=== PATIENT | male | born 1945 | race Caucasian/White ===

== ENCOUNTER 2017-04-17 23:22 | Emergency (ER) | payer MEDICARE, OTHER ==
[2017-04-18 00:09] VITALS: BP 136/97
[2017-04-18] MEDS ORDERED: cefTRIAXone 1 GM in Sodium Chloride 0.9% 50 ML IV ONE (01:08)
[2017-04-18] MEDS ORDERED: Sodium Chloride 0.9% 1,000 ML IV SCH (01:15)
--- NOTE | 2017-04-18 01:52 | EDM.PDOC ---
[id number]: BLOOD IN URINE Time Seen by Provider: 04/18/17 01:00 Source of Information: Reports: Patient History Limitations: Reports: No Limitations - History of Present Illness INITIAL COMMENTS - FREE TEXT/NARRATIVE: pt arrived because he was passing blood in the urine. He has not been having pain when he voids. He uis on coumadin. He has not felt like he was having a problem emptying his bladder. Onset: Today Duration: Hour(s): Location: Reports: Other (pt is passing blood in the urine. ) Associated Symptoms: Reports: No Other Symptoms - Related Data Allergies Allergy/AdvReac Type Severity Reaction Status Date / Time No Known Allergies Allergy Verified 04/18/17 00:58 Home Meds: Home Meds Furosemide [Lasix] 40 mg PO DAILY 07/02/13 [History] Lisinopril 20 mg PO DAILY 07/02/13 [History] Aspirin [[place] Aspirin] 81 mg PO DAILY 02/21/14 [History] Acetaminophen [Tylenol] 1,000 mg PO Q6H PRN 07/05/16 [History] Pantoprazole Sodium [Protonix] 40 mg PO DAILY 07/05/16 [History] Potassium Chloride [Klor-Con M20] 40 meq PO DAILY 07/05/16 [History] atorvaSTATin [Lipitor] 80 mg PO DAILY 07/05/16 [History] Warfarin Sodium 5 mg PO ASDIRECTED 04/18/17 [History] Past Medical History Cardiovascular History: Reports: Bypass, CAD, High Cholesterol, Hypertension, Stents, Other (See Below) Other Cardiovascular History: Bilateral Lower Leg Edema Respiratory History: Reports: Sleep Apnea, SOB Genitourinary History: Reports: Other (See Below) Other Genitourinary History: epidemitis Musculoskeletal History: Reports: Fracture, Other (See Below) Other Musculoskeletal History: r leg knee cap Endocrine/Metabolic History: Reports: Diabetes, Type II, Obesity/BMI 30+, Other (See Below) Other Endocrine/Metabolic History: States boarder line diabetic - Infectious Disease History Infectious Disease History: Reports: C-Difficile, Measles, Mumps - Past Surgical History HEENT Surgical History: Reports: Tonsillectomy Cardiovascular Surgical History: Reports: Coronary Artery Bypass, Coronary Artery Stent, Other (See Below) Other Cardiovascular Surgeries/Procedures: Coronary Angioplasty Social & Family History - Family History Family Medical History: Noncontributory Cardiac: Reports: CAD - Tobacco Use Smoking Status *Q: Never Smoker Second Hand Smoke Exposure: No - Caffeine Use Caffeine Use: Reports: Coffee - Recreational Drug Use Recreational Drug Use: No ED ROS GENERAL - Review of Systems Review Of Systems: See Below Constitutional: Reports: No Symptoms HEENT: Reports: No Symptoms Respiratory: Reports: No Symptoms Cardiovascular: Reports: No Symptoms Endocrine: Reports: No Symptoms GI/Abdominal: Reports: No Symptoms : Reports: Frequency, Hematuria, Other (pt does not feel he is having difficulty passing his urine. ) Musculoskeletal: Reports: No Symptoms ED EXAM, RENAL/ - Physical Exam Exam: See Below Text/Narrative:: pt is passing blood in the urine. He is not having alot of pain. He is on coumadin therapy. Exam Limited By: No Limitations General Appearance: Alert, Anxious Ears: Normal TMs Nose: Normal Inspection Throat/Mouth: Normal Inspection Head: Atraumatic Neck: Normal Inspection Respiratory/Chest: No Respiratory Distress Cardiovascular: Regular Rate, Rhythm GI/Abdominal: Soft, Non-Tender (Male) Exam: Other (pt is passing bloody urine. ) Rectal (Males) Exam: Deferred Extremities: Other (he is having some flank pain but he is not having severe pain. ) Neurological: Alert, Oriented, Normal Cognition Psychiatric: Normal Affect Course - Vital Signs Last Recorded V/S: Last Vital Signs Temp 36.4 C 04/18/17 00:14 Pulse 97 04/18/17 00:14 Resp 20 04/18/17 00:14 BP 136/97 H 04/18/17 00:14 Pulse Ox 94 L 04/18/17 00:14 - Orders/Labs/Meds Labs: Laboratory Tests 04/18/17 04/18/17 04/18/17 Range/Units 00:13 00:13 00:21 WBC 10.3 (4.5-11.0) K/uL RBC 4.63 (4.30-5.90) M/uL Hgb 14.4 D (12.0-15.0) g/dL Hct 43.5 (40.0-54.0) % MCV 94 (80-98) fL MCH 31 (27-31) pg MCHC 33 (32-36) % Plt Count 224 (150-400) K/uL Neut % (Auto) 67 H (36-66) % Lymph % (Auto) 20 L (24-44) % [place] % (Auto) 9 H (2-6) % Eos % (Auto) 3 (2-4) % Baso % (Auto) 1 (0-1) % PT 26.2 H (9.5-12.0) sec INR 2.36 H (0.80-1.20) Sodium 139 L (140-148) mmol/L Potassium 4.1 (3.6-5.2) mmol/L Chloride 101 (100-108) mmol/L Carbon Dioxide 30 (21-32) mmol/L Anion Gap 12.1 (5.0-14.0) mmol/L BUN 22 H (7-18) mg/dL Creatinine 1.6 H (0.8-1.3) mg/dL Est Cr Clr Drug Dosing 34.43 mL/min Estimated GFR (MDRD) 43 L (>60) Glucose 135 H (74-106) mg/dL Calcium 8.5 (8.5-10.1) mg/dL Total Bilirubin 0.5 (0.2-1.0) mg/dL AST 30 (15-37) U/L ALT 97 H (12-78) U/L Alkaline Phosphatase 192 H (46-116) U/L Total Protein 8.1 (6.4-8.2) g/dL Albumin 3.4 (3.4-5.0) g/dL Globulin 4.7 H (2.3-3.5) g/dL Albumin/Globulin Ratio 0.7 L (1.2-2.2) Urine Color Urine Appearance Urine pH (4.5-8.0) Ur Specific [place] (1.008-1.030) Urine Protein (NEGATIVE) mg/dL Urine Glucose (UA) (NEGATIVE) mg/dL Urine Ketones (NEGATIVE) mg/dL Urine Occult Blood (NEGATIVE) Urine Nitrite (NEGAITVE) Urine Bilirubin (NEGATIVE) Urine Urobilinogen (NORMAL) mg/dL Ur Leukocyte Esterase (NEGATIVE) Urine RBC (0-5) Urine WBC (0-5) Ur Epithelial Cells Amorphous Sediment Urine Bacteria Urine Mucus 04/18/17 Range/Units 00:34 WBC (4.5-11.0) K/uL RBC (4.30-5.90) M/uL Hgb (12.0-15.0) g/dL Hct (40.0-54.0) % MCV (80-98) fL MCH (27-31) pg MCHC (32-36) % Plt Count (150-400) K/uL Neut % (Auto) (36-66) % Lymph % (Auto) (24-44) % [place] % (Auto) (2-6) % Eos % (Auto) (2-4) % Baso % (Auto) (0-1) % PT (9.5-12.0) sec INR (0.80-1.20) Sodium (140-148) mmol/L Potassium (3.6-5.2) mmol/L Chloride (100-108) mmol/L Carbon Dioxide (21-32) mmol/L Anion Gap (5.0-14.0) mmol/L BUN (7-18) mg/dL Creatinine (0.8-1.3) mg/dL Est Cr Clr Drug Dosing mL/min Estimated GFR (MDRD) (>60) Glucose (74-106) mg/dL Calcium (8.5-10.1) mg/dL Total Bilirubin (0.2-1.0) mg/dL AST (15-37) U/L ALT (12-78) U/L Alkaline Phosphatase (46-116) U/L Total Protein (6.4-8.2) g/dL Albumin (3.4-5.0) g/dL Globulin (2.3-3.5) g/dL Albumin/Globulin Ratio (1.2-2.2) Urine Color Red Urine Appearance Cloudy Urine pH 5.0 (4.5-8.0) Ur Specific [place] 1.020 (1.008-1.030) Urine Protein 100 H (NEGATIVE) mg/dL Urine Glucose (UA) Normal (NEGATIVE) mg/dL Urine Ketones Negative (NEGATIVE) mg/dL Urine Occult Blood Large (NEGATIVE) Urine Nitrite Negative (NEGAITVE) Urine Bilirubin Small (NEGATIVE) Urine Urobilinogen 1 (NORMAL) mg/dL Ur Leukocyte Esterase Small (NEGATIVE) Urine RBC >100 H (0-5) Urine WBC 0-5 (0-5) Ur Epithelial Cells Rare Amorphous Sediment Not seen Urine Bacteria Many Urine Mucus Not seen Meds: Medications Discontinued Medications Generic Name Dose Route Start Last Admin Trade Name Freq PRN Reason Stop Dose Admin Sodium Chloride 1,000 mls @ 999 mls/hr 04/18/17 01:15 04/18/17 01:32 Normal Saline IV 999 mls/hr ASDIRECTED JOHN Administration Ceftriaxone Sodium 1 gm/ 50 mls @ 100 mls/hr 04/18/17 01:08 04/18/17 01:36 Sodium Chloride IV 04/18/17 01:37 100 mls/hr ONETIME ONE Administration - Re-Assessments/Exams Free Text/Narrative Re-Assessment/Exam: 04/18/17 01:53 pt had alot of bacteria in the urine in addition to the blood. He did not have a fever. His inr is 2.26. He looks on the dry side. His creatnine is 1.6. Departure - Departure Time of Disposition: 03:15 Disposition: Home, Self-Care 01 Condition: Fair Clinical Impression: UTI (urinary tract infection), Hematuria, History of Coumadin therapy - Discharge Information Instructions: Warfarin: What You Need to Know, Urinary Tract Infection, Adult, [id number], Hematuria, Adult Referrals: Foreign Cruz, LUIS MIGUEL [Primary Care Provider] - Forms: ED Department Discharge Care Plan Goals: keep appt with Dr on the . Make them aware of the labs that were run tonight. push fluids, bactrim ds 1 tab twice daily
== END 2017-04-18 03:12 | disposition home or self-care (01) ==
LOC: JP.ED 23:22
DX: N39.0 Urinary tract infection, site not specified (principal); R31.9 Hematuria, unspecified; I25.10 Atherosclerotic heart disease of native coronary artery without angina pectoris; I10 Essential (primary) hypertension; E78.00 Pure hypercholesterolemia, unspecified; E11.9 Type 2 diabetes mellitus without complications; E66.9 Obesity, unspecified; Z68.43 Body mass index [BMI] 50.0-59.9, adult; Z79.01 Long term (current) use of anticoagulants; Z79.82 Long term (current) use of aspirin; Z79.899 Other long term (current) drug therapy; Z95.1 Presence of aortocoronary bypass graft; Z95.5 Presence of coronary angioplasty implant and graft; Z98.890 Other specified postprocedural states
CPT/HCPCS: 36415; 80053; 81001; 85025; 85610; 87086; 96361; 96365; 99284; J0696; J7040; J7050; 99283

== ENCOUNTER 2018-04-29 00:15 | Emergency (ER) | payer MEDICARE, OTHER ==
[2018-04-29 00:32] VITALS: BP 163/73
--- NOTE | 2018-04-29 01:06 | EDM.PDOC ---
ED HPI GENERAL MEDICAL PROBLEM - General Chief Complaint: Genitourinary Problem Stated Complaint: UTI SYMPTOMS Time Seen by Provider: 04/29/18 01:02 Source of Information: Reports: Patient History Limitations: Reports: No Limitations - History of Present Illness INITIAL COMMENTS - FREE TEXT/NARRATIVE: This man complains of pain in left epididymis for 1 day. History of epididymitis x 2 in past. no fever. No dysuria. left testicle Pain Score (Numeric/FACES): 1 - Related Data Allergies Allergy/AdvReac Type Severity Reaction Status Date / Time No Known Allergies Allergy Verified 04/29/18 00:29 Home Meds: Home Meds Furosemide [Lasix] 40 mg PO DAILY 07/02/13 [History] Lisinopril 20 mg PO DAILY 07/02/13 [History] Aspirin [[place] Aspirin] 81 mg PO DAILY 02/21/14 [History] Acetaminophen [Tylenol] 1,000 mg PO Q6H PRN 07/05/16 [History] Pantoprazole Sodium [Protonix] 40 mg PO DAILY 07/05/16 [History] Potassium Chloride [Klor-Con M20] 40 meq PO DAILY 07/05/16 [History] atorvaSTATin [Lipitor] 80 mg PO DAILY 07/05/16 [History] Warfarin Sodium 5 mg PO ASDIRECTED 04/18/17 [History] Past Medical History Cardiovascular History: Reports: Bypass, CAD, High Cholesterol, Hypertension, [place] , Stents, Other (See Below) Other Cardiovascular History: Bilateral Lower Leg Edema Respiratory History: Reports: Sleep Apnea, SOB, Other (See Below) Other Respiratory History: O2 at night 2L Genitourinary History: Reports: Other (See Below) Other Genitourinary History: epidemitis Musculoskeletal History: Reports: Fracture, Other (See Below) Other Musculoskeletal History: r leg knee cap Endocrine/Metabolic History: Reports: Diabetes, Type II, Obesity/BMI 30+, Other (See Below) Other Endocrine/Metabolic History: States boarder line diabetic Hematologic History: Reports: Anticoagulation Therapy - Infectious Disease History Infectious Disease History: Reports: Chicken Pox, Measles, Mumps - Past Surgical History HEENT Surgical History: Reports: Tonsillectomy Cardiovascular Surgical History: Reports: Coronary Artery Bypass, Coronary Artery Stent, Other (See Below) Other Cardiovascular Surgeries/Procedures: Coronary Angioplasty Social & Family History - Family History Family Medical History: Noncontributory Cardiac: Reports: CAD - Tobacco Use Smoking Status *Q: Never Smoker - Caffeine Use Caffeine Use: Reports: Coffee, Soda - Recreational Drug Use Recreational Drug Use: No ED ROS GENERAL - Review of Systems Review Of Systems: ROS reveals no pertinent complaints other than HPI. ED EXAM, RENAL/ - Physical Exam Exam: See Below Exam Limited By: No Limitations General Appearance: Alert, WD/WN, No Apparent Distress (Male) Exam: Testicular Tenderness (L) (c/w epididymitis) Course - Vital Signs Last Recorded V/S: Last Vital Signs Temp 36.2 C 04/29/18 00:32 Pulse 88 04/29/18 00:32 Resp 20 04/29/18 00:32 BP 163/73 H 04/29/18 00:32 Pulse Ox 96 04/29/18 00:32 Departure - Departure Time of Disposition: 01:04 Disposition: Home, Self-Care 01 Condition: Fair Clinical Impression: Epididymitis - Discharge Information Referrals: Gurpreet Neumann MD [Primary Care Provider] - Additional Instructions: Take levofloxacin 500 mg daily for 10 days. See your doctor if no better in 3 days.
== END 2018-04-29 01:15 | disposition home or self-care (01) ==
LOC: JP.ED 00:15
DX: N45.1 Epididymitis (principal); I25.810 Atherosclerosis of coronary artery bypass graft(s) without angina pectoris; E78.00 Pure hypercholesterolemia, unspecified; I10 Essential (primary) hypertension; I25.2 Old myocardial infarction; E11.9 Type 2 diabetes mellitus without complications; G47.30 Sleep apnea, unspecified; E66.9 Obesity, unspecified; Z79.899 Other long term (current) drug therapy; Z79.82 Long term (current) use of aspirin; Z79.01 Long term (current) use of anticoagulants; Z99.89 Dependence on other enabling machines and devices; Z68.42 Body mass index [BMI] 45.0-49.9, adult
CPT/HCPCS: 99283

== ENCOUNTER 2018-07-16 13:49 | Emergency (ER) | payer MEDICARE, OTHER ==
[2018-07-16 14:35] VITALS: BP 167/60
--- NOTE | 2018-07-16 15:22 | EDM.PDOC ---
ED HPI GENERAL MEDICAL PROBLEM - General Chief Complaint: General Stated Complaint: PAIN IN TESTICLES Time Seen by Provider: 07/16/18 14:50 Source of Information: Reports: Patient History Limitations: Reports: No Limitations - History of Present Illness INITIAL COMMENTS - FREE TEXT/NARRATIVE: 73-year-old male with history of recurrent epididymitis presents with concerns of testicular pain. Pain started insidiously yesterday evening, seemed to subside a bit, then again has slowly built up today He reports discomfort and both of the testicles, but primarily in the right. He describes an ache. No radiation of the pain. Mild severity. No associated dysuria. No fevers. No nausea or abdominal pain. No trauma to the area. He reports this is very similar to his prior episodes of epididymitis. - Related Data Allergies Allergy/AdvReac Type Severity Reaction Status Date / Time No Known Allergies Allergy Verified 04/29/18 00:29 Home Meds: Home Meds Furosemide [Lasix] 40 mg PO DAILY 07/02/13 [History] Lisinopril 10 mg PO DAILY 07/02/13 [History] Acetaminophen [Tylenol] 1,000 mg PO Q6H PRN 07/05/16 [History] Pantoprazole Sodium [Protonix] 40 mg PO DAILY 07/05/16 [History] Potassium Chloride [Klor-Con M20] 40 meq PO DAILY 07/05/16 [History] atorvaSTATin [Lipitor] 80 mg PO DAILY 07/05/16 [History] Warfarin Sodium 5 mg PO ASDIRECTED 04/18/17 [History] Levofloxacin 500 mg PO DAILY #10 tablet 07/16/18 [Rx] Past Medical History Cardiovascular History: Reports: Bypass, CAD, High Cholesterol, Hypertension, [place] , Stents, Other (See Below) Other Cardiovascular History: Bilateral Lower Leg Edema Respiratory History: Reports: Sleep Apnea, SOB, Other (See Below) Other Respiratory History: O2 at night 2L Genitourinary History: Reports: Other (See Below) Other Genitourinary History: epidemitis Musculoskeletal History: Reports: Fracture, Other (See Below) Other Musculoskeletal History: r leg knee cap Endocrine/Metabolic History: Reports: Diabetes, Type II, Obesity/BMI 30+, Other (See Below) Other Endocrine/Metabolic History: States boarder line diabetic Hematologic History: Reports: Anticoagulation Therapy Dermatologic History: Reports: Venous Stasis Dermatitis - Infectious Disease History Infectious Disease History: Reports: Chicken Pox, Measles, Mumps - Past Surgical History HEENT Surgical History: Reports: Tonsillectomy Cardiovascular Surgical History: Reports: Coronary Artery Bypass, Coronary Artery Stent, Other (See Below) Other Cardiovascular Surgeries/Procedures: Coronary Angioplasty Social & Family History - Family History Family Medical History: Noncontributory Cardiac: Reports: CAD - Tobacco Use Smoking Status *Q: Never Smoker - Caffeine Use Caffeine Use: Reports: Coffee - Alcohol Use Days Per Week of Alcohol Use: 1 Number of Drinks Per Day: 1 Total Drinks Per Week: 1 - Recreational Drug Use Recreational Drug Use: No ED ROS GENERAL - Review of Systems Review Of Systems: See Below Constitutional: Denies: Fever, Chills HEENT: Reports: No Symptoms Respiratory: Denies: Shortness of Breath Cardiovascular: Denies: Chest Pain GI/Abdominal: Denies: Abdominal Pain, Black Stool, Bloody Stool : Reports: Other (testicular pain) Musculoskeletal: Reports: No Symptoms Skin: Reports: No Symptoms Neurological: Reports: No Symptoms Psychiatric: Reports: No Symptoms Hematologic/Lymphatic: Reports: No Symptoms Immunologic: Reports: No Symptoms ED EXAM, GENERAL - Physical Exam Exam: See Below Exam Limited By: No Limitations General Appearance: Alert, No Apparent Distress Eye Exam: Bilateral Eye: EOMI Ears: Normal External Exam Nose: Normal Inspection Head: Atraumatic, Normocephalic Neck: Supple, Non-Tender Respiratory/Chest: Lungs Clear, Normal Breath Sounds Cardiovascular: Regular Rate, Rhythm GI/Abdominal: Soft, Non-Tender (Male) Exam: Other. No: Scrotal Swelling (Normal appearing scrotum, minimal posterior testicular tenderness) Extremities: Normal Inspection Neurological: Alert, Oriented Psychiatric: Normal Affect Skin Exam: Warm, Dry Course - Vital Signs Last Recorded V/S: Last Vital Signs Temp 37.0 C 07/16/18 14:33 Pulse 79 07/16/18 14:33 Resp 18 07/16/18 14:33 BP 167/60 H 07/16/18 14:33 Pulse Ox 97 07/16/18 14:33 - Re-Assessments/Exams Free Text/Narrative Re-Assessment/Exam: 73 yo with hx of recurrent epididymitis presents with concerns of recurrent testicular pain. He describes a pain that was insidious in onset and identical in character to his prior episodes of epididymitis. Presentation is consistent with recurrent epididymitis. Low concern for testicular torsion or alternative etiology to his pain given his history and exam. He is otherwise well-appearing Will treat him for epididymitis with Levaquin, have warned him about interactions with Coumadin Have asked him to follow-up with his PCP, consider expanding his treatment to a longer duration given his recurrent Will return to the ER for worsening symptoms 07/16/18 15:19 Departure - Departure Time of Disposition: 15:02 Disposition: Home, Self-Care 01 Clinical Impression: Epididymitis - Discharge Information *PRESCRIPTION DRUG MONITORING PROGRAM REVIEWED*: No *COPY OF PRESCRIPTION DRUG MONITORING REPORT IN PATIENT CHICHI: No Prescriptions: Levofloxacin 500 mg PO DAILY #10 tablet Referrals: Gurpreet Neumann MD [Primary Care Provider] - Forms: ED Department Discharge
== END 2018-07-16 15:20 | disposition home or self-care (01) ==
LOC: JP.ED 13:49
DX: N45.1 Epididymitis (principal); I10 Essential (primary) hypertension; E78.00 Pure hypercholesterolemia, unspecified; E11.9 Type 2 diabetes mellitus without complications; Z79.01 Long term (current) use of anticoagulants; Z79.899 Other long term (current) drug therapy
CPT/HCPCS: 99282; 99284

== ENCOUNTER 2019-01-05 08:49 | Day surgery (SDC) | payer MEDICARE, OTHER ==
[2019-01-05] MEDS ORDERED: Sodium Chloride 0.9% 1,000 ML IV SCH (09:45)
[2019-01-05] MEDS ORDERED: fentaNYL 100 MCG/2 ML SDV ONE (10:28)
[2019-01-05] MEDS ORDERED: Midazolam 1 MG/ML 2 ML SDV ONE (10:28)
[2019-01-05] MEDS ORDERED: Propofol 200 MG/20 ML SDV ONE (10:28)
[2019-01-05 11:56] VITALS: BP 155/71
--- NOTE | 2019-01-05 12:53 | OR ---
DATE OF PROCEDURE: 01/05/2019 PROCEDURE: Colonoscopy. FINDINGS: 1. Ascending colon polyp, completely removed using hot snare, approximately 1 cm. 2. Ascending colon polyp #2, approximately 8 mm, completely removed using hot snare. 3. Transverse colon polyp #1, completely removed using cold biopsy forceps, approximately 5 mm. 4. Transverse colon polyp #2, approximately 8 mm, completely removed using hot snare. 5. Sigmoid colon polyp #1, approximately 1 cm, completely removed using hot snare. 6. Descending colon polyp #2, approximately 1 cm, completely removed using hot snare. 7. Descending colon polyp #3, approximately 5 mm, completely removed using cold biopsy forceps. 8. Rectal polyp, approximately 5 mm, completely removed using cold biopsy forceps. PREOPERATIVE DIAGNOSIS: Screening colonoscopy. POSTOPERATIVE DIAGNOSIS: Screening colonoscopy. RISKS: Risks, benefits, alternatives, and limitations including, but not limited to infection, bleeding, and perforation were explained to the patient, who wished to proceed. PROCEDURE IN DETAIL: The patient was placed in left lateral decubitus position. The colonoscope was introduced. After digital rectal exam, which was normal, was completed, the scope was introduced and advanced atraumatically to the ileocecal valve. The scope was brought back to the ascending, transverse, descending colon, and retroflexed. The aforementioned polyps were all removed as described above. They were inspected after removal and no evidence of bleeding was noted after this. No additional pathology was noted. No evidence of old or new blood. No significant diverticulosis. No evidence of inflammatory or irritable bowel disease. No abnormalities on retroflexion. The patient tolerated the procedure well. Vinay Thompson MD /[id number]
== END 2019-01-05 12:10 | disposition home or self-care (01) ==
LOC: JP.SDS 08:49
PROVIDERS: ATTEND Surgery
DX: Z12.11 Encounter for screening for malignant neoplasm of colon (principal); D12.2 Benign neoplasm of ascending colon; D12.3 Benign neoplasm of transverse colon; D12.4 Benign neoplasm of descending colon; D12.5 Benign neoplasm of sigmoid colon; K62.1 Rectal polyp; I10 Essential (primary) hypertension; E11.9 Type 2 diabetes mellitus without complications; E78.5 Hyperlipidemia, unspecified; Z95.1 Presence of aortocoronary bypass graft; G47.33 Obstructive sleep apnea (adult) (pediatric); Z99.89 Dependence on other enabling machines and devices
CPT/HCPCS: 45380; 45385; J2250; J2704; J3010; J7030; 88305